=== PATIENT | female | born 1980 | race Caucasian/White ===

== ENCOUNTER 2017-06-10 04:19 | Emergency (ER) | payer SELFPAY, MEDICAID ==
[2017-06-10] MEDS: DIPHENHYDRAMINE 50 MG INJ IV ×2 (05:12→06:55)
[2017-06-10] MEDS: EPINEPHrine 1 MG INJ IM ×2 (05:12→06:55)
[2017-06-10] MEDS: METHYLPREDNISOLONE 125 MG INJ IV ×2 (05:12→06:55)
[2017-06-10] MEDS: FAMOTIDINE 20 MG INJ IV (05:12)
== END 2017-06-10 08:13 | disposition home or self-care (01) ==
LOC: E/R 04:19
DX: R60.0 Localized edema (principal); T55.0X1A Toxic effect of soaps, accidental (unintentional), initial encounter
CPT/HCPCS: 96372; 96374; 96375; 96376; 99284-25